=== PATIENT | male | born 1945 | race Caucasian/White ===

== ENCOUNTER 2017-02-07 17:38 | Emergency (ER) | payer SELFPAY ==
[~2017-02-07] VITALS: Ht 162.6 cm; Wt 60.0 kg
[2017-02-07 17:40] VITALS: Ht 162.6 cm; Wt 60.0 kg
== END 2017-02-07 18:30 | disposition left against medical advice (07) ==
LOC: E/R 17:38 → FTE 18:30
DX: Z53.21 Procedure and treatment not carried out due to patient leaving prior to being seen by health care provider (principal)
CPT/HCPCS: 93005